=== PATIENT | male | born 1985 | race Caucasian/White ===

== ENCOUNTER 2018-08-22 06:27 | Day surgery (SDC) | payer OTHER ==
[~2018-08-22] VITALS: Ht 160 cm; Wt 77.6 kg
[2018-08-22] MEDS ORDERED: SEVOFLURANE 15 MIN GAS INH ONE (08:15)
[2018-08-22] MEDS ORDERED: ONDANSETRON HCL 4 MG/2 ML VIAL IVP ONE (08:15)
[2018-08-22] MEDS ORDERED: fentaNYL CITRATE 250 MCG/5 ML AMP IV ONE (08:15)
[2018-08-22] MEDS ORDERED: LIDOCAINE/EPI 1% 1:100000 20 ML VIAL INJ ONE (08:15)
[2018-08-22] MEDS ORDERED: GLYCOPYRROLATE 0.2 MG/ML VIAL IJ ONE (08:15)
[2018-08-22] MEDS ORDERED: ROCURONIUM BROMIDE 10 MG/ML (ZEMURON) IV ONE (08:15)
[2018-08-22] MEDS ORDERED: EPINEPHrine 1 MG/ML AMP IV ONE (08:15)
[2018-08-22] MEDS ORDERED: OXYMETAZOLINE HCL 0.05% NASAL SPRAY NS ONE (08:15)
[2018-08-22] MEDS ORDERED: WATER FOR IRRIGATION,STERILE 1,000 ML IRRIG.SOLN IR ONE (08:15)
[2018-08-22] MEDS ORDERED: PROPOFOL 200MG/ 20ML VIAL (DIPRIVAN) IV ONE (08:15)
[2018-08-22] MEDS ORDERED: PHENYLEPHRINE HCL 10 MG/ML VIAL (NEOSYNEPHRINE) IV ONE (08:15)
[2018-08-22] MEDS ORDERED: DEXAMETHASONE SOD PHOSPHATE 4 MG/ML VIAL IVP ONE (08:15)
[2018-08-22] MEDS ORDERED: MIDAZOLAM HCL 5 MG/5 ML VIAL IVP ONE (08:15)
[2018-08-22 11:15] VITALS: BP_SYST 121
[2018-08-22] MEDS ORDERED: LR 1,000 ML IV SCH (11:29)
[2018-08-22] MEDS ORDERED: METOCLOPRAMIDE HCL 10 MG/2 ML VIAL IVP PRN (11:30)
[2018-08-22] MEDS ORDERED: MORPHINE 4 MG/ML INJ. SYRINGE IVP PRN ×3 (11:30)
== END 2018-08-22 13:30 | disposition home or self-care (01) ==
LOC: SDS 06:27 → SMU 06:27 → SDS 13:30
PROVIDERS: ATTEND Otolaryngology
DX: J34.2 Deviated nasal septum (principal); J34.89 Other specified disorders of nose and nasal sinuses; J32.8 Other chronic sinusitis; J32.2 Chronic ethmoidal sinusitis; J32.4 Chronic pansinusitis; J32.9 Chronic sinusitis, unspecified; Z90.49 Acquired absence of other specified parts of digestive tract; Z79.899 Other long term (current) drug therapy; Z98.890 Other specified postprocedural states
CPT/HCPCS: 71046-TC; 88305; 88311; 93005; J0171; J1100; J2250; J2370; J2405; J2704; J3010; J3490